=== PATIENT | male | born 1985 | race Caucasian/White ===

== ENCOUNTER 2017-03-02 12:52 | Emergency (ER) | payer OTHER ==
[2017-03-02] MEDS ORDERED: NACL 0.9% 1000 ML 1,000 ML IV ONE (13:46)
[2017-03-02] MEDS ORDERED: MORPHINE IV ONE (13:46)
[2017-03-02] MEDS ORDERED: ZOFRAN IV ONE (13:46)
[2017-03-02 13:51] LABS: Basophils % (Auto) 0.4 % (0.0-1.8); Eosinophils % (Auto) 0.2 % (0.0-4.3); Hematocrit 46.8 % (35.5-45.6); Hemoglobin 16.2 gm/dl (11.8-15.2); Mean Corpuscular HGB Conc 35 % (32-34); Mean Corpuscular Hemoglobin 31 pg (28-32); Mean Corpuscular Volume 88 fl (84-94); Platelet Count 177 K/mm3 (140-440); Red Blood Count 5.31 M/mm3 (3.65-5.03); Red Cell Distribution Width 12.4 % (13.2-15.2); White Blood Count 9.4 K/mm3 (4.5-11.0)
[2017-03-02 14:32] LABS: Alanine Aminotransferase 138 units/L (7-56); Albumin 4.4 g/dL (3.9-5); Albumin/Globulin Ratio 1.1 %; Alkaline Phosphatase 79 units/L (35-129); Amylase 39 units/L (27-131); Blood Urea Nitrogen 18 mg/dL (9-20); Calcium 9.2 mg/dL (8.4-10.2); Carbon Dioxide 25 mmol/L (22-30); Glucose 151 mg/dL (75-100); Lipase 25 units/L (13-60); Total Protein 8.3 g/dL (6.3-8.2)
[2017-03-02 14:33] LABS: Anion Gap 20 mmol/L; Chloride 91.1 mmol/L (98-107); Potassium 3.4 mmol/L (3.6-5.0); Sodium 133 mmol/L (137-145)
[2017-03-02] MEDS ORDERED: NACL ONE (14:45)
[2017-03-02 14:55] LABS: Bilirubin,Direct < 0.2 mg/dL (0-0.2); Bilirubin,Indirect 0.5 mg/dL
--- NOTE | 2017-03-02 15:36 | Cat Scan Report ---
FINAL REPORT EXAM: CT ABDOMEN PELVIS W CON HISTORY: lower abd pain and tenderness TECHNIQUE: CT scan of the abdomen and pelvis with IV contrast. Multiplanar reconstructions. PRIORS: None. FINDINGS: Lung bases show no significant abnormality. Diffuse fatty infiltration of the liver. Normal-appearing biliary tree and gallbladder. Spleen shows no significant abnormality. Adrenal glands show no significant abnormality. Right kidney shows no significant abnormality. Left kidney shows no significant abnormality. Pancreas shows no significant abnormality. Abdominal aorta is nonaneurysmal. Normal appendix. There is diffuse colonic inflammation and wall thickening, compatible with colitis. No ureteral calculus. No bowel obstruction. IMPRESSION: 1. Pancolitis. Fatty liver.
[2017-03-02 17:25] LABS: Bilirubin,Urine NEG (Negative); Blood,Urine NEG (Negative); Ketones,Urine NEG (Negative); Leukocyte Esterase,Urine NEG (Negative); Nitrite,Urine NEG (Negative); Protein,Urine <15 mg/dL mg/dL (Negative); Urobilinogen,Urine < 2.0 mg/dL (<2.0)
[2017-03-02 19:24] VITALS: BP 155/62
[2017-03-02] MEDS ORDERED: K-DUR PO ONE (19:27)
--- NOTE | 2017-03-02 22:41 | Emergency Department Report ---
Entered by YOLANDA YANEZ, acting as scribe for COURTNEY LANGLEY NP. ED Abdominal Pain HPI - General Chief Complaint: Abdominal Pain Stated Complaint: ACUTE ABD PAIN Time Seen by Provider: 03/02/17 13:37 Source: patient, family Mode of arrival: Ambulatory Limitations: No Limitations, Language Barrier (interperter used ) - History of Present Illness Initial Comments: 31 year old male presents to the ED for evaluation of left lower quadrant and right lower quadrant pain for 3 days with associated subjective fever and anorexia. 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 + diarrhea x 2 days Complaint: abdominal pain Onset/Timin -: days(s) Location: LLQ, RLQ Radiation: none Migration to: no migration Severity: severe Severity scale (0 -10): 10 Consistency: constant Improves With: nothing Worsens With: nothing Associated Symptoms: nausea, vomiting, diarrhea, fever (subjective), anorexia - Related Data Previous Rx's Medication Instructions Recorded Last Taken Type Levofloxacin [Levaquin] 750 mg PO QDAY #5 tablet 03/02/17 Unknown Rx Promethazine [Phenergan TAB] 25 mg PO Q6HR PRN #10 tab 03/02/17 Unknown Rx Allergies Allergy/AdvReac Type Severity Reaction Status Date / Time No Known Allergies Allergy Verified 03/02/17 14:59 ED Review of Systems Comment: All other systems reviewed and negative Constitutional: fever (subjective) Gastrointestinal: abdominal pain (right lower quadrant, left lower quadrant), vomiting, other (anorexia) Neurological: denies: headache ED Past Medical Hx - Past Medical History Previous Medical History?: No - Surgical History Past Surgical History?: No - Family History Family history: no significant - Social History Smoking Status: Never Smoker Substance Use Type: None - Medications Home Medications: Home Medications Medication Instructions Recorded Confirmed Last Taken Type Levofloxacin [Levaquin] 750 mg PO QDAY #5 tablet 03/02/17 Unknown Rx Promethazine [Phenergan TAB] 25 mg PO Q6HR PRN #10 tab 03/02/17 Unknown Rx ED Physical Exam - General General appearance: alert, other (appears uncomfortable ) - Head Head exam: Present: atraumatic, normocephalic - Eye Eye exam: Present: normal appearance, PERRL, EOMI - ENT ENT exam: Present: mucous membranes dry, normal external ear exam - Neck Neck exam: Present: normal inspection, full ROM. Absent: lymphadenopathy - Respiratory Respiratory exam: Present: normal lung sounds bilaterally. Absent: respiratory distress, wheezes, rales, rhonchi - Cardiovascular Cardiovascular Exam: Present: regular rate, normal rhythm, normal heart sounds. Absent: systolic murmur, diastolic murmur, rubs, gallop - GI/Abdominal GI/Abdominal exam: Present: soft, tenderness (LLQ and RLQ), hyperactive bowel sounds, other (positive psoas sign). Absent: distended - Extremities Exam Extremities exam: Present: normal inspection, full ROM. Absent: pedal edema - Back Exam Back exam: Present: normal inspection, full ROM - Neurological Exam Neurological exam: Present: alert - Psychiatric Psychiatric exam: Present: normal affect, normal mood - Skin Skin exam: Present: warm, dry, intact. Absent: rash ED Course Vital Signs 03/02/17 03/02/17 03/02/17 13:12 14:02 14:32 Temperature 98.7 F Pulse Rate 101 H Respiratory 18 22 20 Rate Blood Pressure 160/67 Blood Pressure [Right] O2 Sat by Pulse 100 Oximetry 03/02/17 03/02/17 19:08 19:23 Temperature 98.6 F Pulse Rate 95 H Respiratory 18 20 Rate Blood Pressure Blood Pressure 155/62 [Right] O2 Sat by Pulse 98 99 Oximetry - Reevaluation(s) Reevaluation #1: 03/02/17 19:26 PT states he is feeling much better. PT aware of abnormal CT scan result. PT offered admission for his pancolitis and abnormal lab findings. PT does not want admission to the hospital. PT states he is feeling better and he does not want to stay. PT has family at bedside. PT aware if he feels worse, he must return to the ED. PT given an opportunity to ask questions. PT has no questions at this time. - Pulse Oximetry Interpretation Digit-Finger Initial Pulse Oximetry Readin Actions Taken: none ED Medical Decision Making - Lab Data Result diagrams: 03/02/17 13:42 03/02/17 13:42 Lab Results 03/02/17 03/02/17 03/02/17 Range/Units 13:42 13:42 13:42 WBC 9.4 (4.5-11.0) K/mm3 RBC 5.31 H (3.65-5.03) M/mm3 Hgb 16.2 H (11.8-15.2) gm/dl Hct 46.8 H (35.5-45.6) % MCV 88 (84-94) fl MCH 31 (28-32) pg MCHC 35 H (32-34) % RDW 12.4 L (13.2-15.2) % Plt Count 177 (140-440) K/mm3 Lymph % (Auto) 7.9 L (13.4-35.0) % [place] % (Auto) 4.8 (0.0-7.3) % Eos % (Auto) 0.2 (0.0-4.3) % Baso % (Auto) 0.4 (0.0-1.8) % Lymph # 0.7 L (1.2-5.4) K/mm3 [place] # 0.4 (0.0-0.8) K/mm3 Eos # 0.0 (0.0-0.4) K/mm3 Baso # 0.0 (0.0-0.1) K/mm3 Seg Neutrophils % 86.7 H (40.0-70.0) % Seg Neutrophils # 8.1 H (1.8-7.7) K/mm3 Sodium 133 L (137-145) mmol/L Potassium 3.4 L (3.6-5.0) mmol/L Chloride 91.1 L (98-107) mmol/L Carbon Dioxide 25 (22-30) mmol/L Anion Gap 20 mmol/L BUN 18 (9-20) mg/dL Creatinine 0.8 (0.8-1.5) mg/dL Estimated GFR > 60 ml/min BUN/Creatinine Ratio 22.50 % Glucose 151 H (75-100) mg/dL Calcium 9.2 (8.4-10.2) mg/dL Total Bilirubin 0.60 0.70 (0.1-1.2) mg/dL Direct Bilirubin < 0.2 (0-0.2) mg/dL Indirect Bilirubin 0.5 mg/dL AST 75 H (5-40) units/L ALT 138 H (7-56) units/L Alkaline Phosphatase 79 (35-129) units/L Total Protein 8.3 H (6.3-8.2) g/dL Albumin 4.4 (3.9-5) g/dL Albumin/Globulin Ratio 1.1 % Amylase 39 (27-131) units/L Lipase 25 (13-60) units/L Urine Color (Yellow) Urine Turbidity (Clear) Urine pH (5.0-7.0) Ur Specific [place] (1.003-1.030) Urine Protein (Negative) mg/dL Urine Glucose (UA) (Negative) mg/dL Urine Ketones (Negative) mg/dL Urine Blood (Negative) Urine Nitrite (Negative) Urine Bilirubin (Negative) Urine Urobilinogen (<2.0) mg/dL Ur Leukocyte Esterase (Negative) Urine WBC (Auto) (0.0-6.0) /HPF Urine RBC (Auto) (0.0-6.0) /HPF 03/02/17 Range/Units 17:00 WBC (4.5-11.0) K/mm3 RBC (3.65-5.03) M/mm3 Hgb (11.8-15.2) gm/dl Hct (35.5-45.6) % MCV (84-94) fl MCH (28-32) pg MCHC (32-34) % RDW (13.2-15.2) % Plt Count (140-440) K/mm3 Lymph % (Auto) (13.4-35.0) % [place] % (Auto) (0.0-7.3) % Eos % (Auto) (0.0-4.3) % Baso % (Auto) (0.0-1.8) % Lymph # (1.2-5.4) K/mm3 [place] # (0.0-0.8) K/mm3 Eos # (0.0-0.4) K/mm3 Baso # (0.0-0.1) K/mm3 Seg Neutrophils % (40.0-70.0) % Seg Neutrophils # (1.8-7.7) K/mm3 Sodium (137-145) mmol/L Potassium (3.6-5.0) mmol/L Chloride (98-107) mmol/L Carbon Dioxide (22-30) mmol/L Anion Gap mmol/L BUN (9-20) mg/dL Creatinine (0.8-1.5) mg/dL Estimated GFR ml/min BUN/Creatinine Ratio % Glucose (75-100) mg/dL Calcium (8.4-10.2) mg/dL Total Bilirubin (0.1-1.2) mg/dL Direct Bilirubin (0-0.2) mg/dL Indirect Bilirubin mg/dL AST (5-40) units/L ALT (7-56) units/L Alkaline Phosphatase (35-129) units/L Total Protein (6.3-8.2) g/dL Albumin (3.9-5) g/dL Albumin/Globulin Ratio % Amylase (27-131) units/L Lipase (13-60) units/L Urine Color Yellow (Yellow) Urine Turbidity Clear (Clear) Urine pH 6.0 (5.0-7.0) Ur Specific [place] > 1.059 H (1.003-1.030) Urine Protein <15 mg/dl (Negative) mg/dL Urine Glucose (UA) Neg (Negative) mg/dL Urine Ketones Neg (Negative) mg/dL Urine Blood Neg (Negative) Urine Nitrite Neg (Negative) Urine Bilirubin Neg (Negative) Urine Urobilinogen < 2.0 (<2.0) mg/dL Ur Leukocyte Esterase Neg (Negative) Urine WBC (Auto) 1.0 (0.0-6.0) /HPF Urine RBC (Auto) 1.0 (0.0-6.0) /HPF - Radiology Data Radiology results: report reviewed CT ABD/[facility] - fatty infiltration of the liver, normal appendix, diffuse colonic inflammation and wall thickening. Pancolitis. - Medical Decision Making 31 year old male with no pmh who presents with 3 days of abd pain, 2 days of diarrhea and 1 day of vomiting. PT given 1L NS, Morphine and Zofran. PT's pain and vomiting controlled well. Due to pt's lower abd tenderness, CT ABD Pelvis ordered and shows pancolitis. PT offered admission for these findings. PT declines admission. PT wanting to try taking medication at home. PT aware he will need to take all of the antibiotics and if he feels worse, he needs to return to the ED for re-evaluation and possible admission. PT signed out against medical advise. - Differential Diagnosis diverticulitis, renal insuffiency, appendicitis Critical Care Time: No ED Disposition Clinical Impression: Pancolitis, Hypokalemia, Hyponatremia, Nausea vomiting and diarrhea Disposition: LEFT AGAINST MEDICAL ADVICE Is pt being admited?: No Does the pt Need Aspirin: No Condition: Stable Instructions: Hyponatremia (ED), Hypokalemia (ED), Ulcerative Colitis (ED), Acute Nausea and Vomiting (ED), Abdominal Pain (ED) Additional Instructions: Return to the ED if worsening Prescriptions: Levofloxacin [Levaquin] 750 mg PO QDAY #5 tablet Promethazine [Phenergan TAB] 25 mg PO Q6HR PRN #10 tab PRN Reason: Nausea Referrals: [facility] [Provider Group] - 3-5 Days [facility] [Outside] - 3-5 Days RUTH LOREDO MD [Staff Physician] - 3-5 Days [facility] [Primary Care Provider] - 3-5 Days Forms: AMA Form Time of Disposition: 19:36 This documentation as recorded by the BEAU roblero REBEKAH,accurately reflects the service I personally performed and the decisions made by KORIN rosa TRACY M , ASSOCIATE TEAM PHYSICIAN.
== END 2017-03-02 20:00 | disposition left against medical advice (07) ==
LOC: ED 12:52
DX: K51.00 Ulcerative (chronic) pancolitis without complications (principal); E87.6 Hypokalemia; R11.2 Nausea with vomiting, unspecified; R19.7 Diarrhea, unspecified; E87.1 Hypo-osmolality and hyponatremia
CPT/HCPCS: 36415; 74177; 80053; 81001; 82150; 82248; 83690; 85025; 96361; 96374; 96375; 99284; J2270; J2405; J7030; Q9967